=== PATIENT | male | born 1975 | race Caucasian/White ===

== ENCOUNTER → 2020-09-01 | Outpatient (CLI) | payer OTHER | LOC: CAT 14:19 | PROVIDERS: ATTEND Nurse Practitioner | DX: I25.10 Atherosclerotic heart disease of native coronary artery without angina pectoris (principal); F17.200 Nicotine dependence, unspecified, uncomplicated; Z80.1 Family history of malignant neoplasm of trachea, bronchus and lung; I70.0 Atherosclerosis of aorta ==